=== PATIENT | female | born 1980 | race Caucasian/White ===

== ENCOUNTER 2019-04-05 12:45 | Emergency (ER) | payer OTHER, MEDICAID, SELFPAY ==
--- NOTE | 2019-04-05 12:48 | DI.RAD.S_ITS ---
PROCEDURE: XR CHEST 1V INDICATIONS: chest pain TECHNIQUE: One view of the chest was acquired. COMPARISON: None. FINDINGS: Surgical changes and devices: None. Lungs and pleura: Low lung volumes with scattered subsegmental atelectasis/scarring. No pleural effusions or pneumothorax. Mediastinum: Mediastinal contours appear normal. Heart size is normal. Bones and chest wall: No suspicious bony lesions. Overlying soft tissues appear unremarkable. IMPRESSION: Low lung volumes with scattered subsegmental atelectasis/scarring. Dictated by: Javi Villanueva M.D. on 04/05/2019 at 13:42 Approved by: Javi Villanueva M.D. on 04/05/2019 at 13:42
[2019-04-05 12:50] VITALS: BP 112/53; PULSE 84; RESP 16; TEMP 37.1; O2SAT 98; BMI 29.5
[2019-04-05 13:05] LABS: Add Manual Diff / Slide Review NO; Basophils Absolute Auto 100 /uL (0-100); Basophils Percent Auto 1.1 % (0-2); Eosinophils Absolute Auto 100 /uL (0-450); Eosinophils Percent Auto 0.7 % (2-4); Hematocrit 42.6 % (36-46); Lymphocytes Absolute Auto 3100 /uL (1100-4500); Mean Corpuscular HGB Conc 35.2 % (30-36); Mean Corpuscular Hemoglobin 31.9 PG (26-34); Mean Corpuscular Volume 90.5 fL (80-100); Monocytes Absolute Auto 600 /uL (0-900); Monocytes Percent Auto 8.1 % (3-14); Neutrophils Absolute Auto 4100 /uL (1500-7000); Neutrophils Percent Auto 51.1 % (50-75); Platelet Count 280 X10^3/uL (150-400); Red Blood Cell Count 4.71 X10^6/uL (4.0-5.2); Red Cell Distribution Width 12.8 % (11.6-14.8); White Blood Cell Count 7.9 X10^3/uL (4.5-11.0)
[2019-04-05 13:11] LABS: Prothrombin Time 11.4 SECONDS (10.1-12.7)
[2019-04-05 13:14] LABS: PTT Partial Thromboplastin Tim 32 SECONDS (26.4-36.2)
[2019-04-05 13:16] LABS: Alanine Aminotransferase 17 IU/L (<35); Albumin 4.4 g/dL (3.5-5.0); Albumin Globulin Ratio 1.3 (1.0-2.8); Alkaline Phosphatase 73 U/L (38-126); Aspartate Aminotransferase 21 IU/L (14-36); BUN Creatinine Ratio 14.3 (6-22); Bilirubin Total 0.9 mg/dL (0.2-1.3); Blood Urea Nitrogen 10 mg/dL (7-17); Calcium 10.2 mg/dL (8.4-10.2); Carbon Dioxide 26 mmol/L (22-32); Chloride 105 mmol/L (98-107); Creatine Kinase 66 U/L (30-135); Estimated Glomerular Filt Rate > 60.0 mL/min (>60); Globulin 3.4 g/dL (1.7-4.1); Glucose 116 mg/dL (70-100); HEMOLYSIS < 15 (0-50); Lipase 71 U/L (23-300); Sodium 139 mmol/L (137-145); Total Protein 7.8 g/dL (6.3-8.2)
[2019-04-05 13:28] LABS: Troponin I < 0.012 ng/mL (0.01-0.034)
[2019-04-05 15:32] VITALS: BP 108/54; PULSE 80; RESP 17; O2SAT 97
[2019-04-05 15:41] LABS: D Dimer < 200 ng/mL (<230)
[2019-04-05 15:44] LABS: NT-proBNP (BNP-Adult 18+) 15 pg/mL (<125)
[2019-04-05] MEDS: KETOROLAC 60 MG/2 ML VIAL 30 MG IV (15:50)
[2019-04-05 16:15] VITALS: BP 114/62; PULSE 87; RESP 17; O2SAT 98
[2019-04-05 16:26] LABS: Creatine Kinase 62 U/L (30-135)
[2019-04-05 16:39] LABS: Troponin I < 0.012 ng/mL (0.01-0.034)
--- NOTE | 2019-04-05 17:33 | ED.CHESTPAIN ---
HPI - Chest Pain <JANESSA Castro - Last Filed: 04/05/19 17:48> General Chief Complaint: Chest Pain Stated Complaint: Chest Pain Time Seen by Provider: 04/05/19 14:58 Source: EMS Mode of arrival: EMS Limitations: no limitations History of Present Illness HPI narrative: the patient is a 38-year-old female current smoker with history of anxiety presents with a chief complaint of chest pain on off for the past 3 weeks or so. She states it is worse at random times, when she is breathing for eating. She wonders if it started after she was playing tug-of-war with her 80 lb dog. 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 Denies any shortness of breath over and then during the pain episodes. Pain of episodes are in the center of her chest, nonradiating. Lightheadedness or dizziness nausea vomiting diarrhea or abdominal pain. Denies any possibility of . Related Data Home Medications Medication Instructions Recorded Confirmed albuterol sulfate 1 inh INHALATION PRN PRN 04/05/19 04/05/19 Allergies Allergy/AdvReac Type Severity Reaction Status Date / Time No Known Drug Allergies Allergy Verified 04/05/19 15:46 Review of Systems <JANESSA Castro - Last Filed: 04/05/19 17:48> Review of Systems Narrative: GENERAL: Denies chills, fatigue, malaise, fever, sweats. HEENT: Denies sinus pain, ear pain, sore throat, difficulty swallowing, dizziness. RESPIRATORY: Denies dyspnea, cough, wheezing, hemoptysis, sputum. CARDIOVASCULAR: See HPI GASTROINTESTINAL: Denies nausea, vomiting, abdominal pain, diarrhea, constipation, melena. : Denies dysuria, frequency, incontinence, hematuria, urinary retention. MUSCULOSKELETAL: denies weakness, joint pain, or bony pain SKIN: Denies rash, skin lesions, or other NEUROLOGIC: Denies weakness, headache, numbness, change in speech, confusion, seizures, incoordination. PSYCHIATRIC: No concerning psychosocial issues. 12 point review of systems is negative except for those stated above Patient History <JANESSA Castro - Last Filed: 04/05/19 17:48> Social History Smoking Status: Current every day smoker Smoking Status: Current every day smoker tobacco type: cigarettes alcohol intake frequency: other Substance Use Type: does not use Exam <COSMO Castro - Last Filed: 04/05/19 17:48> Narrative Exam Narrative: GENERAL: This is a well-nourished, well-developed patient, in no acute distress HEAD: Atraumatic. Normocephalic. No temporal or scalp tenderness. EYES: Pupils equal round and reactive. Extraocular motions intact. No scleral icterus. No injection or drainage. ENT: Nose without bleeding, purulent drainage or septal hematoma. Throat without erythema, tonsillar hypertrophy or exudate. Uvula midline. Airway patent. NECK: Trachea midline. No JVD or lymphadenopathy. Supple, nontender, no meningeal signs. CARDIOVASCULAR: Regular rate and rhythm without murmurs, gallops, or rubs. RESPIRATORY: Clear to auscultation. Breath sounds equal bilaterally. No wheezes, rales, or rhonchi. pain to palpation anterior posterior chest wall compression, no pain to palpation lateral chest wall compression. Pain to palpation right costochondral cartilage. GASTROINTESTINAL: Abdomen soft, non-tender, nondistended. No hepato-splenomegaly, or palpable masses. No guarding. Active bowel sounds all 4 quadrants. EXTREMITIES: No clubbing, cyanosis, or edema. No joint tenderness, effusion, or edema noted. BACK: Nontender without deformity or crepitance. No flank tenderness. NEURO: AOx3. SKIN: No rash or erythema Visible skin Initial Vital Signs Initial Vital Signs: Vital Signs Temperature 98.7 F 04/05/19 12:50 Pulse Rate 84 04/05/19 12:50 Respiratory Rate 16 04/05/19 12:50 Blood Pressure 112/53 L 04/05/19 12:50 Pulse Oximetry 98 04/05/19 12:50 <Mayur Mendiola MD - Last Filed: 04/05/19 20:35> Initial Vital Signs Initial Vital Signs: Vital Signs Temperature 98.7 F 04/05/19 12:50 Pulse Rate 84 04/05/19 12:50 Respiratory Rate 16 04/05/19 12:50 Blood Pressure 112/53 L 04/05/19 12:50 Pulse Oximetry 98 04/05/19 12:50 Course <COSMO Castro - Last Filed: 04/05/19 17:48> Orders Ordered: ED Orders 04/05/19 12:48 XR chest 1V Stat EKG-12 Lead Stat 04/05/19 12:58 Complete Blood Count AUTO DIFF Stat Comprehensive Metabolic Panel Stat D Dimer Stat Lipase Stat NT-proBNP (BNP-Adult 18+) Stat Partial Thromboplastin Time Stat Prothrombin Time INR Stat Troponin & CK Cardiac Panel Stat 04/05/19 16:06 Troponin & CK Cardiac Panel Stat Discontinued Medications Ketorolac Tromethamine (Toradol) 30 mg IV NOW ONE Stop: 04/05/19 15:35 Last Admin: 04/05/19 15:50 Dose: 30 mg Documented by: MAXIMO Vital Signs Vital signs: Vital Signs - 8 hr 04/05/19 12:50 04/05/19 15:32 04/05/19 16:15 Temperature 98.7 F Pulse Rate 84 80 87 Respiratory Rate 16 17 17 Blood Pressure 112/53 L Blood Pressure [Right Arm] 108/54 L 114/62 Pulse Oximetry 98 97 98 04/05/19 17:46 Temperature Pulse Rate 74 Respiratory Rate 19 Blood Pressure Blood Pressure [Right Arm] 110/54 L Pulse Oximetry 97 <Mayur Mendiola MD - Last Filed: 04/05/19 20:35> Orders Ordered: ED Orders 04/05/19 12:48 XR chest 1V Stat EKG-12 Lead Stat 04/05/19 12:58 Complete Blood Count AUTO DIFF Stat Comprehensive Metabolic Panel Stat D Dimer Stat Lipase Stat NT-proBNP (BNP-Adult 18+) Stat Partial Thromboplastin Time Stat Prothrombin Time INR Stat Troponin & CK Cardiac Panel Stat 04/05/19 16:06 Troponin & CK Cardiac Panel Stat Discontinued Medications Ketorolac Tromethamine (Toradol) 30 mg IV NOW ONE Stop: 04/05/19 15:35 Last Admin: 04/05/19 15:50 Dose: 30 mg Documented by: MAXIMO Vital Signs Vital signs: Vital Signs - 8 hr 04/05/19 12:50 04/05/19 15:32 04/05/19 16:15 Temperature 98.7 F Pulse Rate 84 80 87 Respiratory Rate 16 17 17 Blood Pressure 112/53 L Blood Pressure [Right Arm] 108/54 L 114/62 Pulse Oximetry 98 97 98 04/05/19 17:46 Temperature Pulse Rate 74 Respiratory Rate 19 Blood Pressure Blood Pressure [Right Arm] 110/54 L Pulse Oximetry 97 MDM - Chest Pain <Leonie LevineAMARIS giraldoP-BC - Last Filed: 04/05/19 17:48> Lab Data Attestation: I reviewed the patient's lab results. Result diagrams: 04/05/19 12:58 04/05/19 12:58 Labs: Lab Results 04/05/19 04/05/19 04/05/19 Range/Units 12:58 12:58 12:58 WBC 7.9 (4.5-11.0) X10^3/uL RBC 4.71 (4.0-5.2) X10^6/uL Hgb 15.0 (12.0-16.0) g/dL Hct 42.6 (36-46) % MCV 90.5 (80-100) fL MCH 31.9 (26-34) PG MCHC 35.2 (30-36) % RDW 12.8 (11.6-14.8) % Plt Count 280 (150-400) X10^3/uL Neut % (Auto) 51.1 (50-75) % Lymph % (Auto) 39.0 (25-40) % [place] % (Auto) 8.1 (3-14) % Eos % (Auto) 0.7 L (2-4) % Baso % (Auto) 1.1 (0-2) % Neut # (Auto) 4100 (4162-7512) /uL Lymph # (Auto) 3100 (6607-7389) /uL [place] # (Auto) 600 (0-900) /uL Eos # (Auto) 100 (0-450) /uL Baso # (Auto) 100 (0-100) /uL PT 11.4 (10.1-12.7) SECONDS INR 1.0 (0.9-1.3) APTT 32 (26.4-36.2) SECONDS D-Dimer (<230) ng/mL Sodium 139 (137-145) mmol/L Potassium 4.0 (3.4-5.1) mmol/L Chloride 105 (98-107) mmol/L Carbon Dioxide 26 (22-32) mmol/L BUN 10 (7-17) mg/dL Creatinine 0.70 (0.52-1.04) mg/dL Estimated GFR > 60.0 (>60) mL/min BUN/Creatinine Ratio 14.3 (6-22) Glucose 116 H (70-100) mg/dL Calcium 10.2 (8.4-10.2) mg/dL Total Bilirubin 0.9 (0.2-1.3) mg/dL AST 21 (14-36) IU/L ALT 17 (<35) IU/L Alkaline Phosphatase 73 (38-126) U/L Total Creatine Kinase 66 (30-135) U/L CK-MB (CK-2) TNP CK-MB (CK-2) Rel Index TNP Troponin I < 0.012 (0.01-0.034) ng/mL NT-Pro-B Natriuret Pep (<125) pg/mL Total Protein 7.8 (6.3-8.2) g/dL Albumin 4.4 (3.5-5.0) g/dL Globulin 3.4 (1.7-4.1) g/dL Albumin/Globulin Ratio 1.3 (1.0-2.8) Lipase 71 (23-300) U/L 04/05/19 04/05/19 04/05/19 Range/Units 12:58 12:58 16:06 WBC (4.5-11.0) X10^3/uL RBC (4.0-5.2) X10^6/uL Hgb (12.0-16.0) g/dL Hct (36-46) % MCV (80-100) fL MCH (26-34) PG MCHC (30-36) % RDW (11.6-14.8) % Plt Count (150-400) X10^3/uL Neut % (Auto) (50-75) % Lymph % (Auto) (25-40) % [place] % (Auto) (3-14) % Eos % (Auto) (2-4) % Baso % (Auto) (0-2) % Neut # (Auto) (9569-0679) /uL Lymph # (Auto) (9447-8171) /uL [place] # (Auto) (0-900) /uL Eos # (Auto) (0-450) /uL Baso # (Auto) (0-100) /uL PT (10.1-12.7) SECONDS INR (0.9-1.3) APTT (26.4-36.2) SECONDS D-Dimer < 200 (<230) ng/mL Sodium (137-145) mmol/L Potassium (3.4-5.1) mmol/L Chloride (98-107) mmol/L Carbon Dioxide (22-32) mmol/L BUN (7-17) mg/dL Creatinine (0.52-1.04) mg/dL Estimated GFR (>60) mL/min BUN/Creatinine Ratio (6-22) Glucose (70-100) mg/dL Calcium (8.4-10.2) mg/dL Total Bilirubin (0.2-1.3) mg/dL AST (14-36) IU/L ALT (<35) IU/L Alkaline Phosphatase (38-126) U/L Total Creatine Kinase 62 (30-135) U/L CK-MB (CK-2) TNP CK-MB (CK-2) Rel Index TNP Troponin I < 0.012 (0.01-0.034) ng/mL NT-Pro-B Natriuret Pep 15 (<125) pg/mL Total Protein (6.3-8.2) g/dL Albumin (3.5-5.0) g/dL Globulin (1.7-4.1) g/dL Albumin/Globulin Ratio (1.0-2.8) Lipase (23-300) U/L Point of Care Testing Test Results Negative Urine Dip Bedside Urine Glucose Negative Bedside Urine Bilirubin - Negative Bedside Urine Ketone - Negative Bedside Urine Occult Blood - Negative Bedside Urine Protein - Negative Bedside Urine Urobilinogen - Negative Bedside Urine Nitrite - Negative Bedside Urine Leukocytes - Negative Esterase Imaging Data Chest x-ray: Radiologist's Impression: [address] [address] XRay Report Signed Patient: Bjorn Zhu#: [id number] : 1980Acct:[id number] Age/Sex: 38 / FDate of Service: 04/05/19 Loc: ED Accession Number: [id number] Procedure: XR chest 1V Ordering Provider: Mayur Mendiola MD PROCEDURE: XR CHEST 1V INDICATIONS: chest pain TECHNIQUE: One view of the chest was acquired. COMPARISON: None. FINDINGS: Surgical changes and devices: None. Lungs and pleura: Low lung volumes with scattered subsegmental atelectasis/scarring. No pleural effusions or pneumothorax. Mediastinum: Mediastinal contours appear normal. Heart size is normal. Bones and chest wall: No suspicious bony lesions. Overlying soft tissues appear unremarkable. IMPRESSION: Low lung volumes with scattered subsegmental atelectasis/scarring. Dictated by: Javi Villanueva M.D. on 04/05/2019 at 13:42 Approved by: Javi Villanueva M.D. on 04/05/2019 at 13:42 ECG Data Attestation: I personally reviewed and interpreted this ECG as follows: Interpretation: sinus rhythm with sinus arrhythmia. Ventricular rate 80. P.r. interval 153. QRS duration [address] Mendiola MDM Narrative Medical decision making narrative: the patient is a 38-year-old female who presents with a chief complaint of chest pain on and off for the past 3 weeks or so. She denies any specific alleviating or exacerbating factors other than pain with breathing, movement, stress. She endorses ever stressful time recently. D-dimers negative, chest x-ray shows no pneumonia, initial troponin is negative, repeat troponin at 3:00 a.m. is also negative. Patient is requesting to go home. I discussed at length that no evidence of acute heart attack does not rule out any future heart attack, not she has a follow-up with primary care provider in the next few days. Given the patient's chest wall pain to palpation, I discussed at length the possibility musculoskeletal pain offered prescriptions for anti-inflammatories, steroids etcetera but the patient refuses medications. She states that she does not want to take any medications. I discussed at length coming back to ER for acute concerns such as chest pain, concern of heart attack or stroke etcetera <Mayur Mendiola MD - Last Filed: 04/05/19 20:35> Lab Data Labs: Lab Results 04/05/19 04/05/19 04/05/19 Range/Units 12:58 12:58 12:58 WBC 7.9 (4.5-11.0) X10^3/uL RBC 4.71 (4.0-5.2) X10^6/uL Hgb 15.0 (12.0-16.0) g/dL Hct 42.6 (36-46) % MCV 90.5 (80-100) fL MCH 31.9 (26-34) PG MCHC 35.2 (30-36) % RDW 12.8 (11.6-14.8) % Plt Count 280 (150-400) X10^3/uL Neut % (Auto) 51.1 (50-75) % Lymph % (Auto) 39.0 (25-40) % [place] % (Auto) 8.1 (3-14) % Eos % (Auto) 0.7 L (2-4) % Baso % (Auto) 1.1 (0-2) % Neut # (Auto) 4100 (0865-5641) /uL Lymph # (Auto) 3100 (2710-6580) /uL [place] # (Auto) 600 (0-900) /uL Eos # (Auto) 100 (0-450) /uL Baso # (Auto) 100 (0-100) /uL PT 11.4 (10.1-12.7) SECONDS INR 1.0 (0.9-1.3) APTT 32 (26.4-36.2) SECONDS D-Dimer (<230) ng/mL Sodium 139 (137-145) mmol/L Potassium 4.0 (3.4-5.1) mmol/L Chloride 105 (98-107) mmol/L Carbon Dioxide 26 (22-32) mmol/L BUN 10 (7-17) mg/dL Creatinine 0.70 (0.52-1.04) mg/dL Estimated GFR > 60.0 (>60) mL/min BUN/Creatinine Ratio 14.3 (6-22) Glucose 116 H (70-100) mg/dL Calcium 10.2 (8.4-10.2) mg/dL Total Bilirubin 0.9 (0.2-1.3) mg/dL AST 21 (14-36) IU/L ALT 17 (<35) IU/L Alkaline Phosphatase 73 (38-126) U/L Total Creatine Kinase 66 (30-135) U/L CK-MB (CK-2) TNP CK-MB (CK-2) Rel Index TNP Troponin I < 0.012 (0.01-0.034) ng/mL NT-Pro-B Natriuret Pep (<125) pg/mL Total Protein 7.8 (6.3-8.2) g/dL Albumin 4.4 (3.5-5.0) g/dL Globulin 3.4 (1.7-4.1) g/dL Albumin/Globulin Ratio 1.3 (1.0-2.8) Lipase 71 (23-300) U/L 04/05/19 04/05/19 04/05/19 Range/Units 12:58 12:58 16:06 WBC (4.5-11.0) X10^3/uL RBC (4.0-5.2) X10^6/uL Hgb (12.0-16.0) g/dL Hct (36-46) % MCV (80-100) fL MCH (26-34) PG MCHC (30-36) % RDW (11.6-14.8) % Plt Count (150-400) X10^3/uL Neut % (Auto) (50-75) % Lymph % (Auto) (25-40) % [place] % (Auto) (3-14) % Eos % (Auto) (2-4) % Baso % (Auto) (0-2) % Neut # (Auto) (0010-7664) /uL Lymph # (Auto) (9430-1652) /uL [place] # (Auto) (0-900) /uL Eos # (Auto) (0-450) /uL Baso # (Auto) (0-100) /uL PT (10.1-12.7) SECONDS INR (0.9-1.3) APTT (26.4-36.2) SECONDS D-Dimer < 200 (<230) ng/mL Sodium (137-145) mmol/L Potassium (3.4-5.1) mmol/L Chloride (98-107) mmol/L Carbon Dioxide (22-32) mmol/L BUN (7-17) mg/dL Creatinine (0.52-1.04) mg/dL Estimated GFR (>60) mL/min BUN/Creatinine Ratio (6-22) Glucose (70-100) mg/dL Calcium (8.4-10.2) mg/dL Total Bilirubin (0.2-1.3) mg/dL AST (14-36) IU/L ALT (<35) IU/L Alkaline Phosphatase (38-126) U/L Total Creatine Kinase 62 (30-135) U/L CK-MB (CK-2) TNP CK-MB (CK-2) Rel Index TNP Troponin I < 0.012 (0.01-0.034) ng/mL NT-Pro-B Natriuret Pep 15 (<125) pg/mL Total Protein (6.3-8.2) g/dL Albumin (3.5-5.0) g/dL Globulin (1.7-4.1) g/dL Albumin/Globulin Ratio (1.0-2.8) Lipase (23-300) U/L Point of Care Testing Test Results Negative Urine Dip Bedside Urine Glucose Negative Bedside Urine Bilirubin - Negative Bedside Urine Ketone - Negative Bedside Urine Occult Blood - Negative Bedside Urine Protein - Negative Bedside Urine Urobilinogen - Negative Bedside Urine Nitrite - Negative Bedside Urine Leukocytes - Negative Esterase Discharge Plan Departure Patient Disposition: Home Clinical Impression: Atypical chest pain Discharge Date/Time: 04/05/19 17:59 Instructions: DI for Atypical Chest Pain Activity Restrictions/Additional Instructions: as discussed, your lab work and imaging came back with no acute abnormalities today. There are many things that could influence chest pain please follow-up with primary care provider in the next few days. I have given you contact information for the [facility] district resource officer his and help affiliate you with primary care provider in the area. Please come back to emergency department for any acute concerns such as concern of heart attack, stroke, passing out etcetera Prescriptions: No Action albuterol sulfate 90 mcg/actuation Hfa Aerosol Inhaler 1 inh INHALATION PRN PRN (Reason: Shortness Of Breath) RF: 0 Referrals: [facility] [Outside]
[2019-04-05 17:46] VITALS: BP 110/54; PULSE 74; RESP 19; O2SAT 97
== END 2019-04-05 17:59 | disposition home or self-care (01) ==
PROVIDERS: Emergency Medicine; Emergency Provider Nurse Practitioner Family
DX: R07.89 Other chest pain (principal)
CPT/HCPCS: 36415; 71045; 80053; 81003; 81025; 82550; 83690; 83880; 84484; 85025; 85379; 85610; 85730; 93005; 96374; 99284; 99285; J1885

== ENCOUNTER 2019-09-17 19:07 | Emergency (ER) | payer OTHER, MEDICAID, SELFPAY ==
[2019-09-17] VITALS (8 sets, daily range): BP systolic 107–142; BP diastolic 56–67; PULSE 83–97; RESP 17–24; TEMP 36.7; O2SAT 95–99; BMI 30.9
--- NOTE | 2019-09-17 19:30 | DI.RAD.S_ITS ---
PROCEDURE: XR CHEST 1V INDICATIONS: chest pain TECHNIQUE: One view of the chest was acquired. COMPARISON: [facility], CR, XR CHEST 1V, 04/05/2019, 13:11. FINDINGS: Surgical changes and devices: None. Lungs and pleura: An incomplete inspiratory result is noted, causing a crowded appearance to the lung markings. No focal infiltrates are seen. No pneumothorax or significant pleural effusions are seen. Mediastinum: Mediastinal contours appear normal. Heart size is normal. Bones and chest wall: No suspicious bony lesions. Overlying soft tissues appear unremarkable. IMPRESSION: Portable chest within normal limits. Dictated by: Ethan Curtis M.D. on 09/17/2019 at 18:53 Approved by: Ethan Curtis M.D. on 09/17/2019 at 18:54
[2019-09-17 20:03] LABS: Add Manual Diff / Slide Review NO; Basophils Absolute Auto 100 /uL (0-100); Basophils Percent Auto 1.1 % (0-2); Eosinophils Absolute Auto 100 /uL (0-450); Eosinophils Percent Auto 1.5 % (2-4); Hematocrit 41.9 % (36-46); Hemoglobin 14.9 g/dL (12.0-16.0); INR 0.9 (0.9-1.3); Lymphocytes Absolute Auto 3700 /uL (1100-4500); Lymphocytes Percent Auto 40.3 % (25-40); Mean Corpuscular HGB Conc 35.6 % (30-36); Mean Corpuscular Hemoglobin 32.3 PG (26-34); Mean Corpuscular Volume 90.6 fL (80-100); Monocytes Absolute Auto 600 /uL (0-900); Monocytes Percent Auto 6.4 % (3-14); Neutrophils Absolute Auto 4700 /uL (1500-7000); Neutrophils Percent Auto 50.7 % (50-75); Platelet Count 301 X10^3/uL (150-400); Prothrombin Time 10.4 SECONDS (10.1-12.7); Red Blood Cell Count 4.63 X10^6/uL (4.0-5.2); Red Cell Distribution Width 12.9 % (11.6-14.8); White Blood Cell Count 9.3 X10^3/uL (4.5-11.0)
--- NOTE | 2019-09-17 20:03 | ED.CHESTPAIN ---
HPI - Chest Pain General Chief Complaint: Chest Pain Stated Complaint: FEELS LIKE CHEST PAIN MUSCLE PAIN Time Seen by Provider: 09/17/19 20:03 Source: patient Mode of arrival: Ambulatory Limitations: no limitations History of Present Illness HPI narrative: 39-year-old woman currently smoking, mild reactive airway disease significant anxiety and living with an alcoholic father that is causing significant amounts of stress presents with increasing central chest tightness for the last 3-4 days it is worse with positioning and with deep breathing and reproducible with palpation along the sternal borders. Yesterday she had an episode with swallowing where she felt like food got stuck and that was frightening for her she has never had that happen before and has not had that happen since the single episode yesterday. She states that she feels like she has an elephant sitting on her chest most the time. She also notes that she has been sleeping poorly because of anxiety and concerned that her alcoholic father is going to if she is not checking on him. She currently has a counselor with whom she is working. Her primary care physician has prescribed and anxiety medication as well as 800 mg of ibuprofen to help with the chest pain. She notes that she does not like taking medications because she feels that she will be judged. When she takes the ibuprofen it does help with the pain and does help her sleep. She tries to avoid the anxiety medication. She does have an inhaled steroid that she uses on a as needed basis only. She does continue to smoke. Related Data Home Medications Medication Instructions Recorded Confirmed albuterol sulfate 1 inh INHALATION PRN PRN 04/05/19 04/05/19 Allergies Allergy/AdvReac Type Severity Reaction Status Date / Time No Known Drug Allergies Allergy Verified 04/05/19 15:46 Review of Systems Review of Systems Narrative: Pertinent positive and negative findings as per HPI Remainder of review of systems is otherwise unremarkable for Constitutional: Fevers, chills, weakness ENT: No sore throat, neck pain, ear pain GI: vomiting, diarrhea, change in bowel habits, black or bloody stools : Dysuria, hematuria, flank pain MS: Muscle weakness, numbness, joint swelling or warmth Skin: Rashes, nonhealing lesions Neuro: Syncope, dizziness, tingling Patient History Medical History (Updated 09/17/19 @ 20:22 by Helena Epperson MD) Anxiety (Acute) Social History Smoking Status: Current every day smoker Smoking Status: Current every day smoker tobacco type: cigarettes alcohol intake frequency: holidays/special occasions only Substance Use Type: does not use Exam Narrative Exam Narrative: General: Healthy appearing, quite anxious, poor eye contact. Able to speak in full sentences with a somewhat scattered history. Well-nourished well-developed HEENT: Moist mucous membranes, normal sclera with reactive pupils, Neck: No JVD, supple Respiratory: Lungs with mild wheezing bilaterally, worse in the bases, no rales no rhonchi. Full and symmetrical air movement Chest: Tenderness with palpation along the sternal border bilaterally and with AP compression of the chest her chest pain is reproduced completely. Cardiac: Regular rate and rhythm no murmurs no bruits Abdomen: Soft nontender good bowel tones, no flank pain Skin: Warm and dry, no rashes Neurologic: Grossly neurologically intact with no obvious asymmetries or abnormalities Extremities: No trauma, well perfused Psych: Cooperative, appropriate insight and affect Initial Vital Signs Initial Vital Signs: Vital Signs Temperature 98.1 F 09/17/19 19:16 Pulse Rate 96 H 09/17/19 19:16 Respiratory Rate 17 09/17/19 19:16 Blood Pressure 114/67 09/17/19 19:16 Pulse Oximetry 98 09/17/19 19:16 Course Orders Ordered: ED Orders 09/17/19 19:30 XR chest 1V Stat EKG-12 Lead Stat 09/17/19 19:50 Complete Blood Count AUTO DIFF Stat Comprehensive Metabolic Panel Stat Lipase Stat Partial Thromboplastin Time Stat Prothrombin Time INR Stat Troponin & CK Cardiac Panel Stat Vital Signs Vital signs: Vital Signs - 8 hr 09/17/19 19:16 09/17/19 19:19 09/17/19 19:20 Temperature 98.1 F Pulse Rate 96 H 96 H Respiratory Rate 17 Blood Pressure 114/67 114/67 Pulse Oximetry 98 99 98 09/17/19 19:30 Temperature Pulse Rate 97 H Respiratory Rate 22 Blood Pressure Pulse Oximetry 96 MDM - Chest Pain Medical Records Data Attestation: I reviewed the patient's medical records. Lab Data Attestation: I reviewed the patient's lab results. Result diagrams: 09/17/19 19:50 09/17/19 19:50 Labs: Lab Results 09/17/19 09/17/19 09/17/19 Range/Units 19:50 19:50 19:50 WBC 9.3 (4.5-11.0) X10^3/uL RBC 4.63 (4.0-5.2) X10^6/uL Hgb 14.9 (12.0-16.0) g/dL Hct 41.9 (36-46) % MCV 90.6 (80-100) fL MCH 32.3 (26-34) PG MCHC 35.6 (30-36) % RDW 12.9 (11.6-14.8) % Plt Count 301 (150-400) X10^3/uL Neut % (Auto) 50.7 (50-75) % Lymph % (Auto) 40.3 H (25-40) % [place] % (Auto) 6.4 (3-14) % Eos % (Auto) 1.5 L (2-4) % Baso % (Auto) 1.1 (0-2) % Neut # (Auto) 4700 (4816-2090) /uL Lymph # (Auto) 3700 (9334-1969) /uL [place] # (Auto) 600 (0-900) /uL Eos # (Auto) 100 (0-450) /uL Baso # (Auto) 100 (0-100) /uL PT 10.4 (10.1-12.7) SECONDS INR 0.9 (0.9-1.3) APTT 31 (26.4-36.2) SECONDS Sodium 137 (137-145) mmol/L Potassium 3.8 (3.4-5.1) mmol/L Chloride 105 (98-107) mmol/L Carbon Dioxide 24 (22-32) mmol/L BUN 10 (7-17) mg/dL Creatinine 0.65 (0.52-1.04) mg/dL Estimated GFR > 60.0 (>60) mL/min BUN/Creatinine Ratio 15.4 (6-22) Glucose 108 H (70-100) mg/dL Calcium 9.2 (8.4-10.2) mg/dL Total Bilirubin 0.7 (0.2-1.3) mg/dL AST 23 (14-36) IU/L ALT 18 (<35) IU/L Alkaline Phosphatase 77 (38-126) U/L Total Creatine Kinase 67 (30-135) U/L CK-MB (CK-2) TNP CK-MB (CK-2) Rel Index TNP Total Protein 7.4 (6.3-8.2) g/dL Albumin 4.3 (3.5-5.0) g/dL Globulin 3.1 (1.7-4.1) g/dL Albumin/Globulin Ratio 1.4 (1.0-2.8) Lipase 107 (23-300) U/L Imaging Data Chest x-ray: Radiologist's Impression: IMPRESSION: Portable chest within normal limits. Dictated by: Ethan Curtis M.D. on 09/17/2019 at 18:53 Discharge Plan Departure Prescriptions: No Action albuterol sulfate 90 mcg/actuation Hfa Aerosol Inhaler 1 inh INHALATION PRN PRN (Reason: Shortness Of Breath) RF: 0
[2019-09-17 20:06] LABS: PTT Partial Thromboplastin Tim 31 SECONDS (26.4-36.2)
[2019-09-17 20:07] LABS: Alanine Aminotransferase 18 IU/L (<35); Albumin 4.3 g/dL (3.5-5.0); Albumin Globulin Ratio 1.4 (1.0-2.8); Alkaline Phosphatase 77 U/L (38-126); Aspartate Aminotransferase 23 IU/L (14-36); BUN Creatinine Ratio 15.4 (6-22); Bilirubin Total 0.7 mg/dL (0.2-1.3); Blood Urea Nitrogen 10 mg/dL (7-17); Calcium 9.2 mg/dL (8.4-10.2); Carbon Dioxide 24 mmol/L (22-32); Chloride 105 mmol/L (98-107); Creatine Kinase 67 U/L (30-135); Estimated Glomerular Filt Rate > 60.0 mL/min (>60); Globulin 3.1 g/dL (1.7-4.1); Glucose 108 mg/dL (70-100); HEMOLYSIS < 15 (0-50); Lipase 107 U/L (23-300); Potassium 3.8 mmol/L (3.4-5.1); Sodium 137 mmol/L (137-145); Total Protein 7.4 g/dL (6.3-8.2)
[2019-09-17 20:19] LABS: Troponin I < 0.012 ng/mL (0.01-0.034)
[2019-09-17] MEDS: ALBUTEROL HFA PREPACK 1 BOX MISC (20:25)
[2019-09-17] MEDS: KETOROLAC 60 MG/2 ML VIAL 15 MG IV (20:26)
== END 2019-09-17 22:07 | disposition home or self-care (01) ==
PROVIDERS: Emergency Provider Emergency Medicine
DX: M94.0 Chondrocostal junction syndrome [Tietze] (principal); F41.9 Anxiety disorder, unspecified; J45.909 Unspecified asthma, uncomplicated; R07.9 Chest pain, unspecified
CPT/HCPCS: 36415; 71045; 80053; 82550; 83690; 84484; 85025; 85610; 85730; 93005; 96374; 99284; J1885